=== PATIENT | female | born 2005 | race Caucasian/White ===

== ENCOUNTER 2023-08-14 22:09 | Emergency (ER) | payer OTHER, SELFPAY ==
[2023-08-14 22:11] VITALS: BP 127/82; PULSE 101; RESP 16; TEMP 36.7; O2SAT 98; BMI 25.0
--- NOTE | 2023-08-14 22:26 | DI.US.S_ITS ---
PROCEDURE: US PELVIC COMPLETE INDICATIONS: RIGHT ADNEXAL PAIN TECHNIQUE: Real-time scanning was performed of the pelvic organs, with image documentation. Additional endovaginal scanning was necessary due to incomplete visualization of the adnexal and endometrial structures by transabdominal scanning. COMPARISON: None. FINDINGS: Uterus: Uterus is anteverted and normal in size at 6.0 x 2.4 x 4.2 cm. The myometrium is homogeneous. The endometrium measures 2 mm combined thickness. Ovaries: The right ovary measures 1.8 x 2.7 x 1.8 cm, with a calculated ovarian volume of 4.7 cc. The left ovary measures 1.4 x 2.4 x 1.7 cm, with a calculated ovarian volume of 3 cc. The ovaries have a normal sonographic appearance. Less than 12 follicles can be seen in each ovary. No adnexal masses are seen. Other: No pathologic free abdominal or pelvic fluid. IMPRESSION: Unremarkable exam. We strive to produce accurate, complete, and clear reports of imaging services. To assist us in improving patient care, this report was composed using standard report templates and voice recognition software. Therefore, it may contain abnormal punctuation, insertions and/or omissions. Occasional wrong-word or sound-alike substitutions may occur. Though we review the report and make efforts to correct it, we do recommend that the report be read carefully in proper context to recognize any text inaccuracies. Dictated by: Daly Paez M.D. on 08/14/2023 at 23:17 Approved by: Daly Paez M.D. on 08/14/2023 at 23:21
--- NOTE | 2023-08-14 22:27 | ED.GENADULT ---
HPI - General Adult General Chief complaint: Abdominal Pain Stated complaint: ABD pain Time Seen by Provider: 08/14/23 22:11 Source: patient and family Mode of arrival: Ambulatory History of Present Illness HPI narrative: Patient is a 17-year-old female here for evaluation of right-sided adnexal pain. She states she would very similar symptoms to this approximately 6 months to 1 year ago where she was seen at an outside emergency department. States she had an ultrasound in which she thinks is either an x-ray or a CT scan. She states there were some concern about appendicitis but it turned out that she did not have appendicitis and potentially just had an ovarian cyst that had ruptured but there was no specific diagnosis. Her symptoms then went away however returned again today. They are very similar to what she had before. She is on her menstrual cycle. She did have diarrhea a couple days ago but nothing currently. No urinary symptoms. No fevers. Has chronic back pain and there is no new changes with that. Review of Systems Constitutional Constitutional: Reports system reviewed and no additional complaints, except as documented Gastrointestinal Gastrointestinal: Reports system reviewed and no additional complaints, except as documented Genitourinary Genitourinary: Reports system reviewed and no additional complaints, except as documented Musculoskeletal Musculoskeletal: Reports system reviewed and no additional complaints, except as documented Integumentary/Breasts Skin/Breast: Reports system reviewed and no additional complaints, except as documented Neurologic Neurologic: Reports system reviewed and no additional complaints, except as documented Hematologic/Lymphatic On Anticoagulants: No Patient History Social History Smoking Status: Never smoker Smoking Status: Never smoker Substance Use Type: does not use Exam Initial Vital Signs Initial Vital Signs: Vital Signs Temperature 98.0 F 08/14/23 22:11 Pulse Rate 101 H 08/14/23 22:11 Respiratory Rate 16 08/14/23 22:11 Blood Pressure 127/82 08/14/23 22:11 Pulse Oximetry 98 08/14/23 22:11 Oxygen Delivery Method Room Air 08/14/23 22:11 [facility] Head: normal to inspection and normocephalic Resp Effort & Inspection: normal respiratory effort Cardio Rate: regular rate GI Inspection: normal to inspection and non-distended Palpation: soft, No firm, No guarding and tender (Bilateral adnexa [id number]-left) Auscultation: normal bowel sounds Back/Spine/Pelvis Back: No CVA tenderness Neuro General: patient alert, patient awake and moves all extremities Extrem General: capillary refill normal Course Orders Ordered: ED Orders 08/14/23 22:20 Chlamydia Gonorrhea PCR -URINE Stat 08/14/23 22:26 US pelvic complete Stat 08/14/23 22:40 Complete Blood Count AUTO DIFF Stat Comprehensive Metabolic Panel Stat Lipase Stat 08/14/23 23:24 EKG-12 Lead Stat 08/14/23 23:29 CT abdomen pelvis w con Stat Ondansetron HCl (Ondansetron 4 Mg Odt Prepack) 1 bottle MISC DIRECTED ONE Stop: 08/15/23 00:32 Discontinued Medications Ketorolac Tromethamine (Ketorolac 30 Mg/Ml Vial) 30 mg IV NOW ONE Stop: 08/14/23 23:35 Last Admin: 08/15/23 00:06 Dose: 30 mg Documented By: AP Vital Signs Vital signs: Vital Signs - 8 hr 08/14/23 22:11 08/14/23 23:27 08/14/23 23:27 Temperature 98.0 F Pulse Rate 101 H 96 H Respiratory Rate 16 Blood Pressure 127/82 120/76 Pulse Oximetry 98 88 L Oxygen Delivery Method Room Air 08/14/23 23:30 08/14/23 23:30 08/14/23 23:56 Temperature Pulse Rate 97 H 97 H Respiratory Rate Blood Pressure 115/75 Pulse Oximetry 99 99 Oxygen Delivery Method 08/14/23 23:56 08/15/23 00:06 Temperature Pulse Rate Respiratory Rate 18 Blood Pressure 98/70 Pulse Oximetry 96 Oxygen Delivery Method Medical Decision Making Lab Data Lab results reviewed: Yes I reviewed the patient's lab results. 08/14/23 22:40 08/14/23 22:40 Labs: Lab Results 08/14/23 08/14/23 Range/Units 22:20 22:40 WBC 8.6 (4.5-11.0) X10^3/uL RBC 4.36 (4.0-5.2) X10^6/uL Hgb 12.2 (12.0-16.0) g/dL Hct 36.0 (36-46) % MCV 82.6 (80-100) fL MCH 28.0 (26-34) PG MCHC 33.9 (30-36) % RDW 13.3 (11.6-14.8) % Plt Count 225 (150-400) X10^3/uL Neut % (Auto) 57.8 (50-75) % Lymph % (Auto) 30.9 (25-40) % [place] % (Auto) 7.9 (3-14) % Eos % (Auto) 2.8 (2-4) % Baso % (Auto) 0.6 (0-2) % Neut # (Auto) 5000 (1799-5610) /uL Lymph # (Auto) 2600 (2331-4935) /uL [place] # (Auto) 700 (0-900) /uL Eos # (Auto) 200 (0-450) /uL Baso # (Auto) 100 (0-100) /uL Sodium 137 (137-145) mmol/L Potassium 3.8 (3.4-5.1) mmol/L Chloride 102 (98-107) mmol/L Carbon Dioxide 27 (22-32) mmol/L BUN 13 (7-17) mg/dL Creatinine 0.69 (0.52-1.04) mg/dL Estimated GFR > 60 (>60) mL/min BUN/Creatinine Ratio 18.8 (6-22) Glucose 101 H (70-100) mg/dL Calcium 9.5 (8.4-10.2) mg/dL Total Bilirubin 0.4 (0.2-1.3) mg/dL AST 20 (14-36) IU/L ALT 14 (<35) IU/L Alkaline Phosphatase 58 (38-126) U/L Total Protein 7.8 (6.3-8.2) g/dL Albumin 4.2 (3.5-5.0) g/dL Globulin 3.6 (1.7-4.1) g/dL Albumin/Globulin Ratio 1.2 (1.0-2.8) Lipase 95 (23-300) U/L Ur Chlamydia DNA (PCR) Not detected N gonorrhoeae DNA (PCR) Not detected Point of Care Testing Test Results Negative Urine Dip Bedside Urine Glucose Negative Bedside Urine Bilirubin - Negative Bedside Urine Ketone - Negative Urine Specific [place] 1.015 Bedside Urine Occult Blood - Negative Bedside Urine pH 6.5 Bedside Urine Protein - Negative Bedside Urine Urobilinogen - Negative Bedside Urine Nitrite - Negative Bedside Urine Leukocytes - Negative Esterase Point of care testing: Point of Care Testing Test Results Negative Urine Dip Bedside Urine Glucose Negative Bedside Urine Bilirubin - Negative Bedside Urine Ketone - Negative Urine Specific [place] 1.015 Bedside Urine Occult Blood - Negative Bedside Urine pH 6.5 Bedside Urine Protein - Negative Bedside Urine Urobilinogen - Negative Bedside Urine Nitrite - Negative Bedside Urine Leukocytes - Negative Esterase Imaging Data US - MANAGER MANAGED CARE: Radiologist's Impression: PROCEDURE: US PELVIC COMPLETE INDICATIONS: RIGHT ADNEXAL PAIN TECHNIQUE: Real-time scanning was performed of the pelvic organs, with image documentation. Additional endovaginal scanning was necessary due to incomplete visualization of the adnexal and endometrial structures by transabdominal scanning. COMPARISON: None. FINDINGS: Uterus: Uterus is anteverted and normal in size at 6.0 x 2.4 x 4.2 cm. The myometrium is homogeneous. The endometrium measures 2 mm combined thickness. Ovaries: The right ovary measures 1.8 x 2.7 x 1.8 cm, with a calculated ovarian volume of 4.7 cc. The left ovary measures 1.4 x 2.4 x 1.7 cm, with a calculated ovarian volume of 3 cc. The ovaries have a normal sonographic appearance. Less than 12 follicles can be seen in each ovary. No adnexal masses are seen. Other: No pathologic free abdominal or pelvic fluid. IMPRESSION: Unremarkable exam. CT scan - abdomen/pelvis: Radiologist's Impression: PROCEDURE: CT ABDOMEN PELVIS W CON INDICATIONS: RLQ ABD pain TECHNIQUE: After the administration of oral and IV contrast, axial sections were acquired from the lung bases to the pubic symphysis. Coronal and sagittal reformats were performed. For radiation dose reduction, the following was used: automated exposure control, adjustment of mA and/or kV according to patient size. COMPARISON: [facility], US PELVIC COMPLETE, 08/14/2023, 22:50. FINDINGS: Image quality: Excellent. Lung bases: Unremarkable. Heart: No significant findings. ABDOMEN: Liver: No solid mass. Gallbladder: No radiopaque gallstones or wall thickening. Biliary ducts: No biliary dilation. Pancreas: No ductal dilation. Spleen: Size is within normal limits. Adrenal Glands: No adrenal nodules. Kidneys and Ureters: No hydronephrosis. No solid mass. No complex renal cystic lesion which requires follow up. Stomach and Bowel: Normal colonic caliber, without significant wall thickening. Prominent colonic stool is present without visualized inflammatory change. The appendix is unremarkable. Significant colonic stool is present. This is most prominent in the right colon. Peritoneum: No abnormal intraperitoneal fluid. No free air. Ventral Wall: No hernia. Abdominal Nodes: No retroperitoneal or mesenteric adenopathy by size criteria. Vessels: Aorta and inferior vena cava are normal in size. PELVIS: Pelvic Organs: Unremarkable. Bladder: Unremarkable. Pelvic Nodes: No enlarged lymph nodes. Miscellaneous: No inguinal hernias are seen. Bones: Unremarkable. IMPRESSION: Significant colonic stool particularly in the right colon most consistent with constipation. No obstruction. Appendix is normal. ECG Data Attestation: I personally reviewed and interpreted this ECG as follows: Interpretation: Sinus rhythm Ventricular rate 84 Normal axis Normal QRS Normal QTC No ST T wave changes MDM Narrative Medical decision making narrative: Labs are unremarkable. Ultrasound shows no ovarian pathology. CT scan shows normal appendix but does have quite a bit of stool in the colon. Constipation could very well be the cause of her symptoms today. There was no indication for antibiotics. No indication for surgical consultation. Discussed the findings with the patient and her mother at bedside. Discussed starting on a good bowel regimen to include MiraLax. She was given return precautions. She expressed understanding and agreement. Discharge Plan Departure Patient Disposition: Home Clinical Impression: Abdominal pain, Constipation Instructions: DI for Abdominal Pain-Adult, DI for Constipation Activity Restrictions/Additional Instructions: Do recommend a good bowel regimen to include a laxative such as MiraLax. You can use the nausea medication as well. Contact your primary doctor for a follow-up. Return to the emergency department for new or worsening symptoms. Stand Alone Forms: Patient Portal/API
[2023-08-14 22:54] LABS: Add Manual Diff / Slide Review NO; Basophils Absolute Auto 100 /uL (0-100); Basophils Percent Auto 0.6 % (0-2); Eosinophils Absolute Auto 200 /uL (0-450); Eosinophils Percent Auto 2.8 % (2-4); Hemoglobin 12.2 g/dL (12.0-16.0); Lymphocytes Absolute Auto 2600 /uL (1100-4500); Lymphocytes Percent Auto 30.9 % (25-40); Mean Corpuscular HGB Conc 33.9 % (30-36); Mean Corpuscular Volume 82.6 fL (80-100); Monocytes Absolute Auto 700 /uL (0-900); Monocytes Percent Auto 7.9 % (3-14); Neutrophils Absolute Auto 5000 /uL (1500-7000); Neutrophils Percent Auto 57.8 % (50-75); Platelet Count 225 X10^3/uL (150-400); Red Blood Cell Count 4.36 X10^6/uL (4.0-5.2); Red Cell Distribution Width 13.3 % (11.6-14.8); White Blood Cell Count 8.6 X10^3/uL (4.5-11.0)
[2023-08-14 23:00] LABS: Alanine Aminotransferase 14 IU/L (<35); Albumin 4.2 g/dL (3.5-5.0); Albumin Globulin Ratio 1.2 (1.0-2.8); Alkaline Phosphatase 58 U/L (38-126); Aspartate Aminotransferase 20 IU/L (14-36); BUN Creatinine Ratio 18.8 (6-22); Bilirubin Total 0.4 mg/dL (0.2-1.3); Blood Urea Nitrogen 13 mg/dL (7-17); Calcium 9.5 mg/dL (8.4-10.2); Carbon Dioxide 27 mmol/L (22-32); Chloride 102 mmol/L (98-107); Estimated Glomerular Filt Rate > 60 mL/min (>60); Globulin 3.6 g/dL (1.7-4.1); Glucose 101 mg/dL (70-100); HEMOLYSIS < 15 (0-50); Lipase 95 U/L (23-300); Potassium 3.8 mmol/L (3.4-5.1); Sodium 137 mmol/L (137-145); Total Protein 7.8 g/dL (6.3-8.2)
[2023-08-14 23:27] VITALS: BP 120/76; PULSE 96; O2SAT 88
--- NOTE | 2023-08-14 23:29 | DI.CT.S_ITS ---
PROCEDURE: CT ABDOMEN PELVIS W CON INDICATIONS: RLQ ABD pain TECHNIQUE: After the administration of oral and IV contrast, axial sections were acquired from the lung bases to the pubic symphysis. Coronal and sagittal reformats were performed. For radiation dose reduction, the following was used: automated exposure control, adjustment of mA and/or kV according to patient size. COMPARISON: [facility], , PELVIC COMPLETE, 08/14/2023, 22:50. FINDINGS: Image quality: Excellent. Lung bases: Unremarkable. Heart: No significant findings. ABDOMEN: Liver: No solid mass. Gallbladder: No radiopaque gallstones or wall thickening. Biliary ducts: No biliary dilation. Pancreas: No ductal dilation. Spleen: Size is within normal limits. Adrenal Glands: No adrenal nodules. Kidneys and Ureters: No hydronephrosis. No solid mass. No complex renal cystic lesion which requires follow up. Stomach and Bowel: Normal colonic caliber, without significant wall thickening. Prominent colonic stool is present without visualized inflammatory change. The appendix is unremarkable. Significant colonic stool is present. This is most prominent in the right colon. Peritoneum: No abnormal intraperitoneal fluid. No free air. Ventral Wall: No hernia. Abdominal Nodes: No retroperitoneal or mesenteric adenopathy by size criteria. Vessels: Aorta and inferior vena cava are normal in size. PELVIS: Pelvic Organs: Unremarkable. Bladder: Unremarkable. Pelvic Nodes: No enlarged lymph nodes. Miscellaneous: No inguinal hernias are seen. Bones: Unremarkable. IMPRESSION: Significant colonic stool particularly in the right colon most consistent with constipation. No obstruction. Appendix is normal. Dictated by: Daly Paez M.D. on 08/15/2023 at 0:00 Approved by: Daly Paez M.D. on 08/15/2023 at 0:03
[2023-08-14 23:30] VITALS: BP 115/75; PULSE 97; O2SAT 99
[2023-08-14 23:56] VITALS: BP 98/70; PULSE 97; O2SAT 99
[2023-08-15 00:06] VITALS: RESP 18; O2SAT 96
[2023-08-15] MEDS: KETOROLAC 30 MG/ML VIAL IV (00:06)
[2023-08-15 00:19] LABS: Urine N gonorrhoeae NOT DETECTED
[2023-08-15 00:24] LABS: Urine Chlamydia NOT DETECTED
[2023-08-15] MEDS: ONDANSETRON 4 MG ODT PREPACK 1 BOTTLE MISC (00:41)
== END 2023-08-15 00:46 | disposition home or self-care (01) ==
PROVIDERS: Emergency Provider Emergency Medicine
DX: R10.2 Pelvic and perineal pain (principal); K59.00 Constipation, unspecified
CPT/HCPCS: 36415; 74177; 76830; 76856; 80053; 81003; 81025; 83690; 85025; 87491; 87591; 93005; 93010; 93975; 96374; 99284; J1885; Q9967